=== PATIENT | female | born 1985 | race American Indian/Alaskan Native ===

== ENCOUNTER 2017-10-18 16:48 | Emergency (ER) | payer BC ==
--- NOTE | 2017-10-18 20:15 | Emergency Department Report ---
Blank Doc - Documentation Documentation: 32yo f with pmh of chronic back pain, came in for back pain exacerbation after lifting a box and states that her back got exacerbated after she was lifting box and hurt her back, no neurological symptoms, no urine or bowel incontinence plan: x ray
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
[2017-10-18] MEDS ORDERED: NORCO 5/325 PO ONE (20:37)
[2017-10-18] MEDS ORDERED: TORADOL IM ONE (20:37)
[2017-10-18] MEDS ORDERED: DECADRON IM ONE (20:37)
[2017-10-18 21:02] LABS: HCG Qualitative,Urine Negative (Negative)
[2017-10-18 21:39] LABS: Bilirubin,Urine NEG (Negative); Blood,Urine SM (Negative); Color,Urine Yellow (Yellow); Mucus,Urine FEW /HPF; Protein,Urine <15 mg/dL mg/dL (Negative); Urobilinogen,Urine < 2.0 mg/dL (<2.0)
[2017-10-18 22:05] VITALS: BP 106/77
--- NOTE | 2017-10-18 22:46 | XRay Report ---
FINAL REPORT PROCEDURE: XR SPINE LUMBOSACRAL 2-3V TECHNIQUE: Two view lumbar spine HISTORY: back pain COMPARISON: No prior studies are available for comparison. FINDINGS: Moderate lumbar lordosis. Mild dextro lumbar scoliosis. Mild sacroiliitis. No definite acute fracture. IMPRESSION: No definite acute fracture
== END 2017-10-18 22:50 | disposition home or self-care (01) ==
LOC: ED 16:48
DX: K59.00 Constipation, unspecified (principal); M54.16 Radiculopathy, lumbar region
CPT/HCPCS: 72100; 81001; 81025; 87086; 96372; 99284; J1100; J1885